=== PATIENT | female | born 1990 | race Caucasian/White ===

== ENCOUNTER 2018-04-19 13:16 | Inpatient (IN) | payer OTHER ==
[~2018-04-19] VITALS: Ht 157.5 cm; Wt 2.7 kg
[2018-04-30] MEDS ORDERED: PRENATAL TABLE1 EAC1 PO (09:24)
== END 2018-05-04 11:28 | disposition home or self-care (01) | DRG 787 ==
LOC: LDR 04-25 13:14 → OB/GYN 04-29 09:34
PROVIDERS: ADMIT Specialist
PROC: 4A1HXCZ Monitoring of Products of Conception, Cardiac Rate, External Approach (ICD-10-PCS; 2018-04-27)
PROC: 10D00Z1 Extraction of Products of Conception, Low, Open Approach (ICD-10-PCS; principal; 2018-04-27 17:00)
PROC: BW21YZZ Computerized Tomography (CT Scan) of Abdomen and Pelvis using Other Contrast (ICD-10-PCS; 2018-04-30)
PROC: BU4CZZZ Ultrasonography of Uterus and Ovaries (ICD-10-PCS; 2018-05-03)
DX: O14.14 Severe pre-eclampsia complicating childbirth (principal); O99.12 Other diseases of the blood and blood-forming organs and certain disorders involving the immune mechanism complicating childbirth; R65.10 Systemic inflammatory response syndrome (SIRS) of non-infectious origin without acute organ dysfunction; Z3A.40 40 weeks gestation of pregnancy; Z37.0 Single live birth; O90.81 Anemia of the puerperium; R74.0 Nonspecific elevation of levels of transaminase and lactic acid dehydrogenase [LDH]; R50.82 Postprocedural fever; F41.8 Other specified anxiety disorders; B96.0 Mycoplasma pneumoniae [M. pneumoniae] as the cause of diseases classified elsewhere; O85 Puerperal sepsis; B37.3 Candidiasis of vulva and vagina